=== PATIENT | male | born 1950 | race Two or more races ===

== ENCOUNTER 2023-09-09 21:23 | Inpatient (IN) | payer OTHER ==
[~2023-09-09] VITALS: Ht 177.8 cm; Wt 141.0 kg
[~2023-09-09 21:23] MED LIST: MET50T PO
[2023-09-09 21:30] VITALS: PULSE 69; RESP 22
[2023-09-09 23:01] LABS: Basophils # (auto) 0.1 10 ^3/uL (0-0.2); Eosinophils # (auto) 0.3 10 ^3/uL (0-0.8); Eosinophils % (auto) 2.6 % (0.0-7.0); Lymphocytes # (auto) 1.1 10 ^3/uL (0.4-5.4); Lymphocytes % (auto) 10.3 % (10.0-50.0); Mean Corpuscular Hemoglobin 29.8 pg (28.0-32.0); Mean Corpuscular Hgb Conc. 33.4 g/dL (32.0-36.0); Mean Corpuscular Volume 89.2 fL (80.0-100.0); Monocytes # (auto) 1.3 10 ^3/uL (0-1.3); Neutrophils # (auto) 7.5 10 ^3/uL (1.6-8.6); Neutrophils % (auto) 73.1 % (37.0-80.0); Nucleated Red Blood Cells % 0.2 %; Red Blood Cells 3.02 10^6/uL (4.5-5.90); Red Cell Distribution Width 14.6 % (11.8-14.3); White Blood Cell 10.2 10^3/uL (4.4-10.8)
[2023-09-09] MEDS: METHOCARBAMOL 500 MG TAB PO ONE (23:01)
[2023-09-09 23:18] LABS: INR 1.17 (0.9-1.15); Partial Thromboplastin Time 28.2 SEC (24.5-34.5); Prothrombin Time 12.3 sec (9.3-11.8)
[2023-09-09 23:23] LABS: Alanine Aminotransferase 44 U/L (7-40); Albumin 3.7 g/dL (3.2-4.8); Alkaline Phosphatase 154 U/L (46-116); Anion Gap 5 (5-15); Aspartate Aminotransferase 36 U/L (13-40); BUN/Creatinine Ratio 15.8 (10.0-20.0); Bilirubin, Total 0.8 mg/dL (0.2-1.0); Blood Urea Nitrogen 15 mg/dL (9-23); Calcium 8.8 mg/dL (8.5-10.1); Carbon Dioxide 29 mmol/L (20-30); Chloride 102 mmol/L (98-107); Glucose 119 mg/dL (74-106); Potassium 4.3 mmol/L (3.5-5.1); Sodium 136 mmol/L (136-145)
[2023-09-09 23:56] LABS: Urine Bacteria None Seen /hpf (None Seen)
[2023-09-10] VITALS (8 sets, daily range): BP systolic 113–134; BP diastolic 60–79; PULSE 72–87; RESP 20–23; TEMP 98.1–99; O2SAT 94–98
[2023-09-10 00:07] LABS: Urine Blood Negative /uL (Negative); Urine Clarity Clear (Clear); Urine Color Yellow (Yellow); Urine Protein, UAD Negative (Negative); Urine Specific Gravity 1.017 (1.001-1.035); Urine Urobilinogen 8 mg/dL (Negative); Urine WBC 2 /hpf (0 - 3); Urine pH 5.5 (5.0-9.0)
[2023-09-10] MEDS: HYDROcodone-ACET 10/325MG TAB PO ONE (05:52)
[2023-09-10] MEDS ORDERED: CLOP75TA70 PO (06:49)
[2023-09-10] MEDS ORDERED: ASPirin 81 mg TAB PO ONE (07:00)
[2023-09-10] MEDS ORDERED: ONDANSETRON HCL 4 MG/2 ML VIAL IV PRN (07:00)
[2023-09-10] MEDS ORDERED: MORPHINE SULFATE INJ 2 MG/ml SYRG IV PRN (07:00)
[2023-09-10] MEDS ORDERED: NITROGLYCERIN 0.4 MG SL TAB SL PRN (07:00)
[2023-09-10] MEDS ORDERED: TRAZ-227 PO (07:07)
[2023-09-10] MEDS ORDERED: AMIO200T13 PO (07:07)
[2023-09-10] MEDS ORDERED: FURO40TA4 PO (07:07)
[2023-09-10] MEDS ORDERED: POTA8TAB38 PO (07:07)
[2023-09-10] MEDS ORDERED: APIX5TAB PO (07:07)
[2023-09-10] MEDS ORDERED: ATOR-47 PO (07:07)
[2023-09-10] MEDS ORDERED: HYDR-4611 PO (07:07)
[2023-09-10] MEDS ORDERED: ALLO300T2 PO (07:07)
[2023-09-10] MEDS: PANTOPRAZOLE 40 MG/10 ML VIAL INJ IV SCH (09:49)
[2023-09-10] MEDS: FUROSEMIDE 40 MG/4 ML VIAL IV SCH (09:52)
[2023-09-10] MEDS: AMIODARONE HCL 200 MG TAB PO SCH (09:53)
[2023-09-10] MEDS: CLOPIDOGREL BISULFATE 75 MG TAB PO SCH (09:53)
[2023-09-10] MEDS: HYDROcodone-ACET 5/325MG TAB PO PRN (09:54)
[2023-09-10] MEDS: APIXABAN 5 MG TAB PO SCH (09:54)
[2023-09-10] MEDS: ALLOPURINOL 100 MG TAB PO SCH (09:54)
[2023-09-10] MEDS: METOPROLOL TARTRATE 50 MG TAB PO SCH (09:55)
[2023-09-10] MEDS ORDERED: PATIENTS OWN MEDICATION (Allopurinol 1 TAB) PO SCH (10:00)
[2023-09-10] MEDS ORDERED: PATIENTS OWN MEDICATION (Atorvastatin Calcium 1 TAB) PO SCH (10:00)
[2023-09-10] MEDS: POTASSIUM CHL 20 Meq TABLET PO SCH (21:01)
[2023-09-10] MEDS: traZODone HCL 50 MG TAB PO SCH (21:01)
[2023-09-10] MEDS: ATORVASTATIN 20 MG TAB PO SCH (21:02)
[2023-09-10] MEDS ORDERED: ATORVASTATIN 20 MG TAB PO SCH (22:00)
[2023-09-11] VITALS (8 sets, daily range): BP systolic 108–143; BP diastolic 55–71; PULSE 63–84; RESP 17–20; TEMP 98–99; O2SAT 92–97
[2023-09-11 07:00] LABS: Basophils # (auto) 0.1 10 ^3/uL (0-0.2); Basophils % (auto) 0.8 % (0.0-2.0); Eosinophils # (auto) 0.2 10 ^3/uL (0-0.8); Eosinophils % (auto) 2.6 % (0.0-7.0); Hemoglobin 9.7 g/dL (13.5-17.5); Lymphocytes % (auto) 10.6 % (10.0-50.0); Mean Corpuscular Hemoglobin 30.1 pg (28.0-32.0); Mean Corpuscular Hgb Conc. 33.5 g/dL (32.0-36.0); Mean Corpuscular Volume 89.8 fL (80.0-100.0); Monocytes % (auto) 10.7 % (0.0-12.0); Neutrophils # (auto) 6.8 10 ^3/uL (1.6-8.6); Neutrophils % (auto) 75.3 % (37.0-80.0); Nucleated Red Blood Cells % 0.1 %; Red Blood Cells 3.23 10^6/uL (4.5-5.90); Red Cell Distribution Width 14.6 % (11.8-14.3); White Blood Cell 9.1 10^3/uL (4.4-10.8)
[2023-09-11 07:26] LABS: Anion Gap 7 (5-15); Carbon Dioxide 28 mmol/L (20-30); Chloride 102 mmol/L (98-107); Potassium 4.3 mmol/L (3.5-5.1); Sodium 137 mmol/L (136-145)
[2023-09-11 07:32] LABS: BUN/Creatinine Ratio 18.5 (10.0-20.0); Blood Urea Nitrogen 15 mg/dL (9-23); Glucose 105 mg/dL (74-106)
[2023-09-11] MEDS: ASPirin 81 mg TAB PO SCH (09:24)
[2023-09-11] MEDS: ACETAMINOPHEN 325 MG TAB PO PRN (20:55)
[2023-09-12] VITALS (7 sets, daily range): BP systolic 90–131; BP diastolic 55–76; PULSE 71–88; RESP 16–18; TEMP 37; O2SAT 92–99
[2023-09-12 05:04] LABS: Basophils # (auto) 0.1 10 ^3/uL (0-0.2); Red Blood Cells 3.29 10^6/uL (4.5-5.90)
[2023-09-12 05:06] LABS: Eosinophils # (auto) 0.3 10 ^3/uL (0-0.8); Hematocrit 29.2 % (41.0-53.0); Hemoglobin 9.9 g/dL (13.5-17.5); Lymphocytes % (auto) 10.4 % (10.0-50.0); Mean Corpuscular Hgb Conc. 33.7 g/dL (32.0-36.0); Mean Corpuscular Volume 88.8 fL (80.0-100.0); Monocytes # (auto) 1.2 10 ^3/uL (0-1.3); Monocytes % (auto) 12.4 % (0.0-12.0); Neutrophils % (auto) 73.2 % (37.0-80.0); Red Cell Distribution Width 14.9 % (11.8-14.3); White Blood Cell 9.6 10^3/uL (4.4-10.8)
[2023-09-12 05:13] LABS: Chloride 104 mmol/L (98-107); Potassium 4.7 mmol/L (3.5-5.1); Sodium 138 mmol/L (136-145)
[2023-09-12 05:14] LABS: Anion Gap 4 (5-15); Calcium 9.5 mg/dL (8.5-10.1); Carbon Dioxide 30 mmol/L (20-30)
[2023-09-12 05:19] LABS: BUN/Creatinine Ratio 14.4 (10.0-20.0); Blood Urea Nitrogen 14 mg/dL (9-23); Glucose 116 mg/dL (74-106)
[2023-09-12] MEDS: FUROSEMIDE 40 MG TAB PO SCH (18:00)
[2023-09-12] MEDS ORDERED: POTASSIUM CHL 20 Meq TABLET PO SCH (22:00)
== END 2023-09-12 17:25 | disposition home health service (06) | DRG 291 ==
LOC: ER 21:23 → EDBD 21:23 → TELE 09-10 06:54 → TELE-WESTW 09-10 08:41
PROVIDERS: ADMIT Nurse Practitioner Family; ATTEND Nurse Practitioner Family
DX: I11.0 Hypertensive heart disease with heart failure (principal); I50.33 Acute on chronic diastolic (congestive) heart failure; D64.9 Anemia, unspecified; I25.10 Atherosclerotic heart disease of native coronary artery without angina pectoris; I48.91 Unspecified atrial fibrillation; G89.29 Other chronic pain; M54.9 Dorsalgia, unspecified; I25.2 Old myocardial infarction; Z95.1 Presence of aortocoronary bypass graft; Z88.8 Allergy status to other drugs, medicaments and biological substances; Z79.899 Other long term (current) drug therapy; Z98.84 Bariatric surgery status; Z79.01 Long term (current) use of anticoagulants; Z87.891 Personal history of nicotine dependence
CPT/HCPCS: 36415; 80048; 80053; 81001; 82270; 83036; 83880; 84484; 85025; 85610; 85730; 87081; 93005; 93306; 97163; C9113; G0378